=== PATIENT | male | born 1935 | race Caucasian/White ===

== ENCOUNTER 2016-09-20 15:05 | Inpatient (IN) | payer OTHER ==
[~2016-09-20] VITALS: Ht 172.7 cm; Wt 101.6 kg
--- NOTE | ~2016-09-20 | EKG ---
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 : 1935 Requested By: Josh Mata Order Number: [id number] MD: Shyam Monsivais Measurements Intervals [place] Rate: 84 P: -35 KS: 114 QRS: 143 QRSD: 150 T: 23 QT: 449 QTc: 531 Interpretive Statements Sinus rhythm Borderline short [place] interval RBBB and LPFB Inferior infarct, old Compared to ECG 04/07/2014 00:18:37 Myocardial infarct finding still present Electronically Signed On 09-26-2016 21:33:18 CDT by Shyam Monsivais [email or web address] <ELECTRONICALLY SIGNED> By: Shyam Monsivais MD 09/26/16 2133 1539 1539 Shyam Monsivais MD /EPI
[~2016-09-20 15:05] MED LIST: ACETAMINOPHEN325 M1 PO; ACIDOPHILUS1 EAC3; ADULT LOW DOSE81 MG; AMBIEN 5 MG TABL5 M1; ARICEPT 5 MG TAB5 MG PO; ASPIRIN EC325 M1 PO; ASPIRIN EC81 M1 PO; BACLOFEN 10MG T10 M1; BISAC-EVAC10 MG RECTAL; BISACODYL SUPP10 MG; CARVEDILOL3.125 MG PO; CARVEDILOL6.25 MG; CARVEDILOL6.25 MG PO; CEFTIN500 MG PO; CLARITIN10 MG PO; COLACE100 MG PO; COZAAR 25 MG TA25 M2 PO; DIAPER RASH57 GM; FENOFIBRATE54 MG; FERROUS GLUCON324 M2; FERROUS SULFAT325 MG PO; FINASTERIDE5 MG PO; FORADIL12 MCG; GELUSIL; HUMALOG100 UNIT/1 SUBQ; HYDROCORTISONE30 G9; IMDUR60 MG PO; JUVEN PACKET1 EACH; KEFLEX500 M1 PO; LAC-HYDRIN225 GM; LACTULOSE10 GM/152 PO; LANTUS100 UNIT/M SUBQ; LEVAQUIN 500 M500 MG PO; LEVEMIR; LIDODERM 5%1 PATCH TOP; LISINOPRIL5 MG; LORTAB 5-500 T1 EAC1 PO; LYRICA 50 MG50 MG PO; MELATONIN3 MG PO; MIRALAX255 GM; MOM PO; MUCINEX TA600 MG/TA2 PO; MYVITALIFE1 EACH PO; NEURONTIN600 MG PO; NOVOLOG100 UNIT/1; PLAVIX 75 MG TA75 M1 PO; PRILOSEC 20 MG20 MG PO; PROAIR HFA8.5 GM INH; RANEXA500 MG PO; REQUIP0.5 MG PO; SERTRALINE HCL100 MG PO; TAMSULOSIN HCL0.4 MG PO; TIZANIDINE HCL 22 M1 PO; TUMS PO; WOUND; XANAX 0.25 MG0.25 MG
[2016-09-20 15:06] VITALS: BP 146/74
[2016-09-20 15:54] LABS: HEMOGLOBIN 13.5 gm/dL (14.0-18.0); MCHC 33.7 g/dL (28.0-37.0); PLATELET COUNT 163 thou/uL (150-400); RBC 4.35 mil/uL (4.50-6.00); RDW 14.2 % (10.5-14.5); WBC 9.4 thou/uL (4.0-11.0)
[2016-09-20 15:55] LABS: MANUAL DIFF YES
[2016-09-20 16:01] LABS: ANION GAP 10 mmol/L (7-16); BUN 48 mg/dL (7-18); CHLORIDE 108 mmol/L (98-107); CO2 27 mmol/L (21-32); CREATININE 2.7 mg/dL (0.7-1.3); GLUCOSE 103 mg/dL (74-106); POTASSIUM 4.9 mmol/L (3.5-5.1); SODIUM 145 mmol/L (136-145)
[2016-09-20 16:08] LABS: APTT 25.2 Seconds (24.5-32.8); INR 1.1; PROTIME 11.1 Seconds (9.3-11.4)
[2016-09-20 16:10] LABS: ALBUMIN 3.1 g/dL (3.4-5.0); ALKALINE PHOSPHATASE 84 U/L (46-116); SGOT 16 U/L (15-37); SGPT 20 U/L (30-65); TOTAL BILIRUBIN 0.9 mg/dL (<0.1-1.0); TOTAL PROTEIN 7.1 g/dL (6.4-8.2); TROPONIN-I < 0.04 ng/mL (<0.04-0.07)
[2016-09-20 16:18] LABS: TOTAL CELL COUNT 100
[2016-09-20 16:29] LABS: URINE BILIRUBIN NEGATIVE (Negative); URINE BLOOD 2+ (Negative); URINE COLOR YELLOW; URINE GLUCOSE-RANDOM* NEGATIVE (Negative); URINE KETONES NEGATIVE (Negative); URINE LEUKOCYTES-REFLEX 1+ (Negative); URINE PROTEIN (DIPSTICK) 2+ (Negative); URINE SPECIFIC GRAVITY 1.015 (1.003-1.035)
[2016-09-20 16:37] LABS: CASTS None Seen /LPF (None Seen); CRYSTALS None Seen /LPF (None Seen); SQUAMOUS None Seen /LPF (0-3); URINE RBC 3-10 Few /HPF (0-2); URINE WBC-REFLEX 6-15 Few /HPF (0-5)
[2016-09-20 17:34] VITALS: BP 148/88
[2016-09-20] MEDS ORDERED: LASIX 40 MG TAB40 M2 PO (17:52)
[2016-09-20] MEDS ORDERED: GLIPIZIDE ER2.5 MG PO (17:53)
[2016-09-20] MEDS ORDERED: CLARITIN10 MG PO (17:54)
[2016-09-20] MEDS ORDERED: MOBIC7.5 MG PO (17:54)
[2016-09-20] MEDS ORDERED: SERTRALINE HCL50 MG PO (17:56)
[2016-09-20] MEDS ORDERED: NEURONTIN 300300 M1 PO (17:57)
[2016-09-20] MEDS ORDERED: NITROGLYCERIN0.4 MG SUBLING (17:58)
[2016-09-20] MEDS ORDERED: LANTUS100 UNIT/M SUBQ (17:59)
[2016-09-20 18:11] VITALS: BP 171/74
[2016-09-20 18:20] VITALS: BP 154/102
[2016-09-20 19:37] VITALS: BP 134/72
[2016-09-21 00:08] VITALS: BP 98/51
[2016-09-21 04:50] VITALS: BP 130/62
[2016-09-21 06:24] LABS: HEMATOCRIT 35.6 % (42.0-52.0); HEMOGLOBIN 11.8 gm/dL (14.0-18.0); MCH 31.1 pg (26.0-34.0); MCHC 33.2 g/dL (28.0-37.0); MCV 93.7 fL (80.0-100.0); RBC 3.8 mil/uL (4.50-6.00); RDW 14.3 % (10.5-14.5); WBC 10.2 thou/uL (4.0-11.0)
[2016-09-21 06:33] LABS: CALCIUM 8.3 mg/dL (8.5-10.1); CREATININE 2.7 mg/dL (0.7-1.3); MAGNESIUM 2.1 mg/dL (1.8-2.4); POTASSIUM 4.9 mmol/L (3.5-5.1)
[2016-09-21 08:34] VITALS: BP 119/72
[2016-09-21 19:35] VITALS: BP 109/56
[2016-09-22 03:10] VITALS: BP 147/73
[2016-09-22 08:00] VITALS: BP 142/46
[2016-09-22] MEDS ORDERED: CEFUROXIME500 MG PO (11:00)
[2016-09-22 14:40] VITALS: BP 160/58
== END 2016-09-22 17:41 | DRG 689 ==
LOC: ER 15:05 → EROBS 16:59 → 4S 16:59
PROVIDERS: Hospitalist; Physician Assistant
DX: N39.0 Urinary tract infection, site not specified (principal); G93.40 Encephalopathy, unspecified; N40.0 Benign prostatic hyperplasia without lower urinary tract symptoms; J44.9 Chronic obstructive pulmonary disease, unspecified; E11.9 Type 2 diabetes mellitus without complications; I25.10 Atherosclerotic heart disease of native coronary artery without angina pectoris; N18.3 Chronic kidney disease, stage 3 (moderate); F32.9 Major depressive disorder, single episode, unspecified; E11.40 Type 2 diabetes mellitus with diabetic neuropathy, unspecified; E11.22 Type 2 diabetes mellitus with diabetic chronic kidney disease; G89.29 Other chronic pain; M54.9 Dorsalgia, unspecified; E86.0 Dehydration; R33.9 Retention of urine, unspecified; Z95.1 Presence of aortocoronary bypass graft; Z86.73 Personal history of transient ischemic attack (TIA), and cerebral infarction without residual deficits; Z79.899 Other long term (current) drug therapy
CPT/HCPCS: 10195

== ENCOUNTER 2016-10-11 11:40 | Inpatient (IN) | payer OTHER ==
[~2016-10-11] VITALS: Ht 172.7 cm; Wt 106.2 kg
--- NOTE | ~2016-10-11 | HC ---
[facility] [place] [address] CONSULTATION Name: LAINEY GEE Room #: 447-P [facility] IN ..#: [id number] Admission: 10/11/16 Attend Phys: Scott Burton MD Discharge: Date of : 35 Report #: [id number] THIS REPORT FOR: //name// CC: MASSIEL physician/PCP Soctt Burton DATE OF SERVICE: 10/12/2016 INDICATION: Dyspnea. HISTORY OF PRESENT ILLNESS: This is an 81-year-old gentleman transferred from the long-term for shortness of breath. He has been experiencing dyspnea and a cough with sputum production for the past several stays. He was started on oral antibiotics without any improvement. The patient denies any history of chest pains, palpitations, fever or nausea. The patient was admitted for pneumonia, started on antibiotics. We are asked to evaluate the patient for an elevated BNP level of over 6000. PAST MEDICAL HISTORY: Remote history of CABG x 2, most recently had stent insertion in 2012, followed by Dr. Bond; history of chronic obstructive pulmonary disease, oxygen dependent at night; chronic renal insufficiency; peripheral vascular disease with lower extremity bypass; diabetes mellitus; hypertension; GERD; dementia. ALLERGIES: None. MEDICATIONS: Please see the MAR for full details. SOCIAL HISTORY: Resides in a long-term. No tobacco use. FAMILY HISTORY: Negative for premature CAD. REVIEW OF SYSTEMS: A full 10-point review of systems performed. Only the pertinent positives and negatives are described in the HPI. PHYSICAL EXAMINATION: VITAL SIGNS: Blood pressure is 170/90 and heart rate is 65 beats per minute. GENERAL APPEARANCE: An elderly appearing male in no acute respiratory distress. HEAD AND EYES: Normocephalic. Sclerae are anicteric. ENT: Oral mucosa moist. NECK: Supple. LUNGS: Bronchial breath sounds, diminished at the bases. CARDIAC: Regular rate and rhythm, S1, S2 positive. ABDOMEN: Soft, nontender. Bowel sounds positive. EXTREMITIES: Bilateral palacios dressings, no cyanosis. Trace edema in the ankles. SKIN: Intact, no rashes. [facility] [address] [place] [address] CONSULTATION Name: LAINEY GEE Joe Room #: 447-P [facility] IN M.R.#: [id number] Admission: 10/11/16 Attend Phys: Scott Burton MD Discharge: Date of : 35 Report #: [id number] ECG reveals sinus rhythm, first degree AV block. Right bundle branch block, left anterior hemiblock. LABORATORY VALUES: BNP is elevated. Sodium is 144, creatinine is 2.8. Troponin is negative. White count 6.3, hemoglobin is 9.4. ASSESSMENT AND PLAN: 1. Respiratory failure, rule out pneumonia, continue with antibiotics and check blood cultures. 2. Congestive heart failure, manifested with an elevated BNP level. He does not appear to be fluid overloaded on examination. He did receive one dose of Lasix. We will need an echo to assess his LV systolic function. I do not believe that continued Lasix therapy is indicated. 3. Hypertension, elevated, it may be contributing to his symptoms. We will need better management of his blood pressure. 4. Coronary artery disease/coronary artery bypass graft/percutaneous coronary intervention, stable at this time with no episodes of angina. 5. Diabetes mellitus, continue the medications. 6. Chronic renal insufficiency, follow creatinine level. Thank you for allowing me to participate in the care of your patient. <ELECTRONICALLY SIGNED> By: Ramana Wiggins MD 10/13/1607 0816 0911 Ramana Wiggins MD /nt
--- NOTE | ~2016-10-11 | 2DMMODE ---
[facility] [address] [place] [address] 2 D/M-MODE ECHOCARDIOGRAM Name: LAINEY GEE Room #: 447-P [facility] IN [facility]#: [id number] Admission: 10/11/16 Attend Phys: Scott Burton, Discharge: Date of : 35 Date of Service: 10/12/16 0959 Report #: [id number] THIS REPORT FOR: //name// APPROVED REPORT Study performed: 10/12/2016 07:55:16 EXAM: Comprehensive 2D, Doppler, and color-flow Echocardiogram Patient Location: Bedside Room #: [facility] Status: routine BSA: 2.18 BP: 177/90 mmHg Other Information Study Quality: Adequate Technically limited study due to inability to position patient due to COPD/breathing issues. Indications COPD Diabetes CAD 2D Dimensions RVDd: 39.35 mm LVEF(%): 23.91 (>50%) IVSd: 17.51 (7-11mm) LVOT Diam: 17.95 (18-24mm) LVDd: 46.18 mm PWd: 17.84 (7-11mm) Ascending Ao: 37.84 (22-36mm) LVDs: 41.12 (25-40mm) Aortic Root: 34.15 mm IVC: 25.00 mm Friedman's LVEF: 23.91 % Volumes Left Atrial Volume (Systole) Single Plane 4CH: 47.89 mL Single Plane 2CH: 88.16 mL LA ESV Index: 35.00 mL/m2 Aortic Valve AoV Peak Mynor.: 1.44 m/s AO Peak Gr.: 8.30 mmHg LVOT Max P.62 mmHg LVOT Max V: 0.81 m/s BELKYS Vmax: 1.42 cm2 [facility] [place] [address] [place] [address] 2 D/M-MODE ECHOCARDIOGRAM Name: LAINEY GEE Room #: 447-P [facility] IN [facility].#: [id number] Admission: 10/11/16 Attend Phys: Scott Burton, Discharge: Date of : 35 Date of Service: 10/12/16 0959 Report #: [id number] Mitral Valve E/A Ratio: 1.7 MV Decel. Time: 164.97 ms MV E Max Mynor.: 1.32 m/s MV A Mynor.: 0.78 m/s MV PHT: 47.84 ms IVRT: 87.66 ms Pulmonary Valve PV Peak Mynor.: 0.91 m/s PV Peak Gr.: 3.33 mmHg Pulmonary Vein P Vein S: 0.31 m/s P Vein D: 0.80 m/s P Vein S/D Ratio: 0.39 Tricuspid Valve TR Peak Mynor.: 3.14 m/s RAP Estimate: 15.00 mmHg TR Peak Gr.: 39.45 mmHg Left Ventricle The left ventricle is normal size. Moderate concentric left ventricular hypertrophy. Left ventricular systolic function is normal. LVEF is 55%. Grade II - pseudonormal filling dynamics. Right Ventricle Right ventricle is at the upper limits of normal. The right ventricular systolic function is normal. Atria Left atrium is dilated. The right atrium size is normal. Aortic Valve Aortic valve appears to have adequate excursion. Mild aortic regurgitation. There is no aortic valvular stenosis. Mitral Valve The mitral valve is normal in structure. Moderate mitral regurgitation. No evidence of mitral valve stenosis. Tricuspid Valve The tricuspid valve is normal in structure. There is moderate tricuspid regurgitation. The right atrial pressure is estimated at 15 mmHg. PAP is estimated at 55 mmHg. Pulmonic Valve [address] [address] 2 D/M-MODE ECHOCARDIOGRAM Name: LAINEY GEE Room #: 447-P [facility] IN ..#: [id number] Admission: 10/11/16 Attend Phys: Scott Burton, Discharge: Date of : 35 Date of Service: 10/12/16 0959 Report #: [id number] Pulmonic valve is not well visualized. Mild pulmonic regurgitation. Great Vessels The aortic root is normal in size. IVC is dilated and collapses <50% with inspiration. <Conclusion> The left ventricle is normal size. Moderate concentric left ventricular hypertrophy. Left ventricular systolic function is normal. Left atrium is dilated. Mild aortic regurgitation. Moderate mitral regurgitation. There is moderate tricuspid regurgitation. The right atrial pressure is estimated at 15 mmHg. PAP is estimated at 55 mmHg. <ELECTRONICALLY SIGNED> By: Ramana Wiggins MD 10/12/1659 Ramana Wiggins MD /INF
--- NOTE | ~2016-10-11 | HC ---
[facility] [place] [address] CONSULTATION Name: LAINEY GEE Room #: 447-P [facility] IN M.R.#: [id number] Admission: 10/11/16 Attend Phys: Scott Burton MD Discharge: Date of : 35 Report #: [id number] THIS REPORT FOR: //name// CC: MASSIEL physician/PCP Scott Burton DATE OF SERVICE: 10/12/2016 REASON FOR CONSULTATION: Acute on chronic respiratory failure. IMPRESSION: 1. Acute on chronic respiratory failure. 2. Possible pneumonia. 3. Obstructive sleep apnea. 4. Pulmonary hypertension. 5. Coronary artery disease with history of coronary artery bypass graft. 6. Diabetes. 7. Chronic renal insufficiency. 8. Thrombocytopenia and anemia, normocytic. 9. Hypercapnic respiratory failure. PLAN: We will add CPAP at night and we will continue current aerosol therapy, await sputum, agree with Levaquin at present, may switch depending as we will check for MRSA and for legionella and strep and urine. DVT and ulcer prophylaxis per primary in cards. HISTORY OF PRESENT ILLNESS: An 81-year-old transferred from the custodial for increasing shortness of breath, cough, not feeling better in the last few days, failed outpatient antibiotics. Denied fever or chills. Denied chest pain. PAST MEDICAL HISTORY: ALLERGIES: No known. MEDICATIONS: By report included insulin, lactulose, lidocaine, magnesium, calcium, omeprazole, Plavix, finasteride, isosorbide, Ranexa, ProAir, Coreg, Aricept, iron, isosorbide, duloxetine, tizanidine, loratadine, aspirin, meloxicam, sertraline and gabapentin. PAST SURGICAL HISTORY: Include CABG, laminectomy, cholecystectomy and fem-pop bypass. SOCIAL HISTORY: Positive tobacco in past. Negative drugs of abuse or ETOH. REVIEW OF SYSTEMS: History of BPH, COPD, diabetes, anemia, CKD, depression, neuropathy, back pain, CVA, UTI, insomnia and hemiparesis. [facility] [address] [place] [address] CONSULTATION Name: LAINEY GEE Joe Room #: 447-P [facility] IN [facility].#: [id number] Admission: 10/11/16 Attend Phys: Scott Burton MD Discharge: Date of : 35 Report #: [id number] PHYSICAL EXAMINATION: VITAL SIGNS: Temperature 97.6, pulse 76, respirations 20, blood pressure 154/79. HEENT: Eyes: Negative icterus. NECK: Negative JVD. LUNGS: Coarse bilateral. HEART: Regular. ABDOMEN: Bowel sounds present. EXTREMITIES: Showed no edema. NEUROLOGIC: Alert, oriented. He was recently in hospital for encephalopathy, UTI and dehydration. Sleep study in the past showed an AHI of 60, sat of 82% recording CPAP at 10. LABORATORY DATA: BUN 55 and creatinine 2.4, this has worsened since 2013 but similar to September. BNP was 6484, hemoglobin 10.8, platelets 140, pH on the 7.319, pCO2 of 51 and pO2 of 94. <ELECTRONICALLY SIGNED> By: Mallorie Black MD 10/16/16 0849 1834 2142 Mallorie Black MD /nt
--- NOTE | ~2016-10-11 | EKG ---
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: [id number] : 1935 Requested By: Kristen Nugent Order Number: [id number] MD: James Villasenor Measurements Intervals [place] Rate: 74 P: -66 IA: 155 QRS: 104 QRSD: 165 T: 0 QT: 455 QTc: 505 Interpretive Statements Supraventricular rhythm, possibly sinus RBBB and LPFB No previous ECGs available for comparison Electronically Signed On 10-13-2016 8:38:16 CDT by James Villasenor [email or web address] <ELECTRONICALLY SIGNED> By: James Villasenor MD, [facility] 10/13/16 0838 D: [id number] James Villasenor MD, FACC /EPI
--- NOTE | ~2016-10-11 | HC ---
[facility] [place] [address] CONSULTATION Name: LAIENY GEE Room #: 447-P [facility] IN ..#: [id number] Admission: 10/11/16 Attend Phys: Scott Burton MD Discharge: Date of : 35 Report #: [id number] THIS REPORT FOR: //name// CC: MASSIEL physician/PCP Scott Burton DATE OF SERVICE: 10/14/2016 REASON FOR CONSULTATION: I was asked to evaluate concerning MRSA and lower respiratory tract infection. HISTORY OF PRESENT ILLNESS: The patient is an 81-year-old longterm resident with underlying COPD, coronary artery disease and diabetes with chronic kidney disease presents from the longterm with a progressive shortness of breath. He states lasted several weeks. He has had increased cough and sputum production, admitted through the Emergency Room. It is noted that he had some delirium associated with this. No documented fever. He has had sputum production, yellow in color with no hemoptysis. No chest pain. Sputum culture on admission has now grown MRSA. Screen for Legionella and strep pneumonia by urinary antigens were negative. Chest x-ray showed COPD, pulmonary vascular congestion, left lower lobe atelectasis and infiltrate, treated with Levaquin, on 2 liters of oxygen per nasal cannula. He has shown some improvement, although still has a fair amount of bronchorrhea. No gross aspiration has been identified. Denies any chest pain, nausea, vomiting or diarrhea currently. He does void on his own. He has chronic renal failure. He has chronic venous stasis disease and neuropathy, mostly on the right. ALLERGIES: None known. MEDICATIONS: As noted on his MAR, including Levaquin. PAST MEDICAL HISTORY, FAMILY HISTORY AND SOCIAL HISTORY: Unchanged from his history and physical, which was reviewed in detail. REVIEW OF SYSTEMS: As noted above with no additions. PHYSICAL EXAMINATION: VITAL SIGNS: Afebrile, hemodynamically stable. GENERAL: He is alert and cooperative and pleasant, in no acute distress. He is on 2 liters of oxygen per nasal cannula. He was able to roll over in bed with minimal assistance. SKIN: Notes healed wound over the right lateral malleolus. Stasis dermatitis changes to the pretibial skin, both lower extremities. HEENT: Unremarkable. NECK: Supple. LUNGS: Few crackles heard in the left base posteriorly. [address] [address] CONSULTATION Name: LAINEY GEE Room #: 447-P [facility] IN M.R.#: [id number] Admission: 10/11/16 Attend Phys: Scott Burton MD Discharge: Date of : 35 Report #: [id number] HEART: Regular, without murmur. ABDOMEN: Soft, nontender, no hepatosplenomegaly or mass. NEUROLOGIC: Nonfocal. During his examination, he had multiple episodes of cough with moderate amount of light tanned sputum production. LABORATORY STUDIES: Sputum shows many methicillin-resistant Staph aureus, further sensitivities are pending. MRSA nasal swab positive. Blood cultures negative. Creatinine 2.5. Sodium 140, potassium 4.8. BNP 6484, hemoglobin 10.3, WBC 7.3, platelet count 153,000, differential unremarkable. ABG yesterday on 2 liters showed a pO2 of 84, pCO2 of 48, pH is 7.35. Chest x-ray, left lower lobe atelectasis and infiltrate, which has improved since admission. IMPRESSION: Healthcare-associated pneumonia, left lower lobe, complicating chronic obstructive pulmonary disease. Has evidence of methicillin-resistant Staphylococcus aureus infection. Recommend continuing antibiotic coverage with Zyvox. The patient is on 2 SSRIs for his depression and will need to be monitored very closely while on this treatment. We will try to decrease his dosage while on Zyvox. This would allow us best drug penetration into the lungs. I have discussed with nursing staff. By: 2256 0247 Néstor Worthy MD /nt
[2016-10-11 11:40] VITALS: BP 113/68
[~2016-10-11 11:40] MED LIST changes: +CEFUROXIME500 MG PO; +GLIPIZIDE ER2.5 MG PO; +LASIX 40 MG TAB40 M2 PO; +MOBIC7.5 MG PO; +NEURONTIN 300300 M1 PO; +NITROGLYCERIN0.4 MG SUBLING; +SERTRALINE HCL50 MG PO
[2016-10-11] MEDS ORDERED: IRON325 PO (11:58)
[2016-10-11] MEDS ORDERED: IMDUR 60 MG TAB60 M1 PO (12:04)
[2016-10-11] MEDS ORDERED: LYRICA 50 MG50 MG PO (12:05)
[2016-10-11] MEDS ORDERED: CYMBALTA60 MG PO (12:05)
[2016-10-11] MEDS ORDERED: ZANAFLEX4 MG PO (12:06)
[2016-10-11] MEDS ORDERED: CLARITIN10 MG PO (12:07)
[2016-10-11 12:52] LABS: ABSOLUTE NEUTROPHILS 4.4 thou/uL (1.4-8.2); BASOPHILS 0.2 % (0.0-2.0); EOSINOPHILS 6.2 % (0.0-3.0); HEMATOCRIT 27.2 % (42.0-52.0); HEMOGLOBIN 9.4 gm/dL (14.0-18.0); LYMPHOCYTES 14.5 % (24.0-44.0); MANUAL DIFF NO; MCH 31.7 pg (26.0-34.0); MCHC 34.3 g/dL (28.0-37.0); MCV 92.3 fL (80.0-100.0); MONOCYTES 10.3 % (1.0-8.0); PLATELET COUNT 122 thou/uL (150-400); POLYS 68.8 % (36.0-66.0); RBC 2.95 mil/uL (4.50-6.00); RDW 14.3 % (10.5-14.5); WBC 6.3 thou/uL (4.0-11.0)
[2016-10-11 12:57] LABS: ANION GAP 7 mmol/L (7-16); BUN 58 mg/dL (7-18); CALCIUM 8.8 mg/dL (8.5-10.1); CHLORIDE 108 mmol/L (98-107); CO2 29 mmol/L (21-32); CREATININE 2.8 mg/dL (0.7-1.3); GLUCOSE 213 mg/dL (74-106); POTASSIUM 4.5 mmol/L (3.5-5.1); SODIUM 144 mmol/L (136-145)
[2016-10-11 13:05] LABS: TROPONIN-I < 0.04 ng/mL (<0.04-0.07)
[2016-10-11 13:17] LABS: ABG SAMPLE TYPE ARTERIAL; BE(vivo) -0.7 mmol/L (-2 to +3); HCO3 25.8 mmol/L (22.0-26.0); LACTATE 1.21 mmol/L (0.5-2.0); O2(CT) 14.3 mL/dL (15.0-23.0); PCO2 51.3 mmHg (35.0-45.0); PO2 94.7 mmHg (80.0-100.0); sO2 96.6 % (92.0-98.0); tCO2 27.4 mmol/L (24.0-30.0)
[2016-10-11 13:19] LABS: STICK SITE R.RADIAL; pH 7.319 (7.360-7.450)
[2016-10-11 16:50] VITALS: BP 149/87
[2016-10-11 18:45] VITALS: BP 120/71
[2016-10-11 19:55] VITALS: BP 135/73
[2016-10-11 23:25] VITALS: BP 172/74
[2016-10-12 05:02] LABS: HEMATOCRIT 31.2 % (42.0-52.0); HEMOGLOBIN 10.8 gm/dL (14.0-18.0); MCH 31.5 pg (26.0-34.0); MCHC 34.5 g/dL (28.0-37.0); MCV 91.2 fL (80.0-100.0); RBC 3.42 mil/uL (4.50-6.00); RDW 14.3 % (10.5-14.5); WBC 7.3 thou/uL (4.0-11.0)
[2016-10-12 05:18] LABS: CALCIUM 9.1 mg/dL (8.5-10.1); CREATININE 2.4 mg/dL (0.7-1.3); POTASSIUM 5.4 mmol/L (3.5-5.1)
[2016-10-12 05:25] VITALS: BP 171/83
[2016-10-12 08:48] VITALS: BP 177/90
[2016-10-12 16:36] VITALS: BP 154/79
[2016-10-12 20:50] VITALS: BP 140/65
[2016-10-13 05:25] VITALS: BP 142/80
[2016-10-13 06:17] LABS: HEMATOCRIT 29.6 % (42.0-52.0); HEMOGLOBIN 10.3 gm/dL (14.0-18.0); MCH 31.8 pg (26.0-34.0); MCHC 34.7 g/dL (28.0-37.0); MCV 91.5 fL (80.0-100.0); RBC 3.24 mil/uL (4.50-6.00); RDW 13.8 % (10.5-14.5); WBC 7.3 thou/uL (4.0-11.0)
[2016-10-13 06:40] LABS: CREATININE 2.5 mg/dL (0.7-1.3); POTASSIUM 4.8 mmol/L (3.5-5.1)
[2016-10-13 07:54] VITALS: BP 166/81
[2016-10-13 08:48] LABS: ABG SAMPLE TYPE ARTERIAL; BE(vivo) 0.5 mmol/L (-2 to +3); HCO3 26.4 mmol/L (22.0-26.0); LACTATE 1.52 mmol/L (0.5-2.0); O2(CT) 15.5 mL/dL (15.0-23.0); O2Hb 95.4 % (92.0-98.0); PCO2 48.2 mmHg (35.0-45.0); PO2 84.7 mmHg (80.0-100.0); STICK SITE R.RADIAL; pH 7.357 (7.360-7.450); sO2 95.9 % (92.0-98.0); tCO2 27.9 mmol/L (24.0-30.0)
[2016-10-13 14:34] VITALS: BP 126/75
[2016-10-13 20:27] VITALS: BP 123/61
[2016-10-14 04:47] VITALS: BP 126/54
[2016-10-14 08:19] VITALS: BP 150/77
[2016-10-14 16:19] VITALS: BP 146/70
[2016-10-14 19:40] VITALS: BP 128/64
[2016-10-15 04:30] VITALS: BP 135/65
[2016-10-15 07:17] LABS: CALCIUM 8.6 mg/dL (8.5-10.1); CREATININE 2.7 mg/dL (0.7-1.3); POTASSIUM 4.4 mmol/L (3.5-5.1)
[2016-10-15 08:52] VITALS: BP 145/67
[2016-10-15 16:26] VITALS: BP 148/63
[2016-10-15 20:54] VITALS: BP 131/66
[2016-10-16 04:58] VITALS: BP 138/67
[2016-10-16 08:28] VITALS: BP 147/66
[2016-10-16] MEDS ORDERED: DUONEB 2.5-0.5 M3 ML INH (11:07)
[2016-10-16] MEDS ORDERED: NORVASC 5 MG TAB5 MG PO (11:08)
[2016-10-16] MEDS ORDERED: MUCINEX TA600 MG/TA1 PO (11:08)
[2016-10-16] MEDS ORDERED: PREDNISONE 10 M10 MG PO (11:09)
[2016-10-16] MEDS ORDERED: LINEZOLID600 MG PO (11:10)
== END 2016-10-16 14:40 | DRG 291 ==
LOC: ER 11:40 → 4S 15:45 → EROBS 15:45 → 4S 16:58
PROVIDERS: Emergency Medicine; Hospitalist; Internal Medicine; Internal Medicine Cardiovascular Disease; Internal Medicine Pulmonary Disease
DX: I13.0 Hypertensive heart and chronic kidney disease with heart failure and stage 1 through stage 4 chronic kidney disease, or unspecified chronic kidney disease (principal); J15.212 Pneumonia due to Methicillin resistant Staphylococcus aureus; J96.22 Acute and chronic respiratory failure with hypercapnia; I50.43 Acute on chronic combined systolic (congestive) and diastolic (congestive) heart failure; J44.1 Chronic obstructive pulmonary disease with (acute) exacerbation; J44.0 Chronic obstructive pulmonary disease with (acute) lower respiratory infection; E87.2 Acidosis; G47.33 Obstructive sleep apnea (adult) (pediatric); I27.2 Other secondary pulmonary hypertension; I25.10 Atherosclerotic heart disease of native coronary artery without angina pectoris; E11.22 Type 2 diabetes mellitus with diabetic chronic kidney disease; Z66 Do not resuscitate; D64.9 Anemia, unspecified; D69.6 Thrombocytopenia, unspecified; N18.3 Chronic kidney disease, stage 3 (moderate); I34.0 Nonrheumatic mitral (valve) insufficiency; F32.9 Major depressive disorder, single episode, unspecified; G89.29 Other chronic pain; M54.9 Dorsalgia, unspecified; G47.00 Insomnia, unspecified; F03.90 Unspecified dementia, unspecified severity, without behavioral disturbance, psychotic disturbance, mood disturbance, and anxiety; K21.9 Gastro-esophageal reflux disease without esophagitis; E11.40 Type 2 diabetes mellitus with diabetic neuropathy, unspecified; E11.51 Type 2 diabetes mellitus with diabetic peripheral angiopathy without gangrene; N40.0 Benign prostatic hyperplasia without lower urinary tract symptoms; I87.8 Other specified disorders of veins; Z79.899 Other long term (current) drug therapy; Z79.4 Long term (current) use of insulin; Z79.82 Long term (current) use of aspirin; Z95.1 Presence of aortocoronary bypass graft; Z79.2 Long term (current) use of antibiotics; Z86.73 Personal history of transient ischemic attack (TIA), and cerebral infarction without residual deficits; Z87.440 Personal history of urinary (tract) infections; Z90.49 Acquired absence of other specified parts of digestive tract; Z87.891 Personal history of nicotine dependence
CPT/HCPCS: 10100